=== PATIENT | male | born 2000 | race Caucasian/White ===

== ENCOUNTER 2020-06-13 22:52 | Inpatient (IN) | payer OTHER ==
[~2020-06-13] VITALS: Ht 172.7 cm; Wt 74.2 kg
[2020-06-13] MEDS ORDERED: MULTCAP PO (23:03)
[2020-06-13] MEDS ORDERED: LIDO5DIS41 TD (23:03)
[2020-06-13] MEDS ORDERED: MOBI4TAB PO (23:03)
[2020-06-13] MEDS ORDERED: IBUP1TAB7 PO (23:03)
[2020-06-13 23:28] LABS: HEMATOCRIT 44.8 % (42.0-52.0); HEMOGLOBIN 14.8 g/dl (13.5-17.5); MEAN CORPUSCULAR HEMOGLOBIN 28.6 pg (27.0-33.0); MEAN CORPUSCULAR VOLUME 86.5 fl (80.0-96.0); PLATELET COUNT, AUTOMATED 217 10^3/uL (150-450); RED BLOOD COUNT 5.18 10^6/uL (4.30-6.10); WHITE BLOOD COUNT 9.8 10^3/uL (4.0-10.0)
[2020-06-14 00:12] LABS: ACETAMINOPHEN LEVEL < 2.0 UG/ML (10.0-30.0); ALBUMIN 4.3 GM/DL (3.2-5.2); ALT/SGPT 31 U/L (12-78); BILIRUBIN,DIRECT 0.2 MG/DL (0.0-0.2); BILIRUBIN,TOTAL 0.7 MG/DL (0.2-1.0); BLOOD UREA NITROGEN 18 MG/DL (7-18); CALCIUM LEVEL 8.9 MG/DL (8.5-10.1); CARBON DIOXIDE LEVEL 29 MEQ/L (21-32); CHLORIDE LEVEL 107 MEQ/L (98-107); CREATININE FOR GFR 1.14 MG/DL (0.70-1.30); ETHYL ALCOHOL (ETHANOL) 0.003 % (0.000-0.010); GLOMERULAR FILTRATION RATE > 60.0 (>60); GLUCOSE, FASTING 86 MG/DL (70-100); POTASSIUM SERUM 3.7 MEQ/L (3.5-5.1); SALICYLATE LEVEL < 1.7 MG/DL (5.0-30.0); SODIUM LEVEL 143 MEQ/L (136-145); THYROID STIMULATING HORMONE 0.991 uIU/ML (0.358-3.740)
[2020-06-14] MEDS ORDERED: IBUP1TAB7 PO (00:37)
[2020-06-14] MEDS ORDERED: LIDO1PAD TOP (00:37)
[2020-06-14] MEDS ORDERED: VITMTA PO (00:37)
[2020-06-14 01:51] LABS: AMPHETAMINES LEVEL URINE NEGATIVE (NEGATIVE); BARBITURATES URINE NEGATIVE (NEGATIVE); BENZODIAZEPINES URINE NEGATIVE (NEGATIVE); CANNABINOIDS URINE NEGATIVE (NEGATIVE); COCAINE METABOLITE URINE NEGATIVE (NEGATIVE); METHADONE URINE NEGATIVE (NEGATIVE); OPIATES URINE NEGATIVE (NEGATIVE); PHENCYCLIDINE URINE NEGATIVE (NEGATIVE)
[2020-06-14] MEDS ORDERED: MAALOX 30 ML SUSP *UDC PO PRN (20:00)
[2020-06-14] MEDS ORDERED: OLANZapine ORAL DISINTEGRATING TAB 5MG PO PRN (20:00)
[2020-06-14] MEDS ORDERED: ACETAMINOPHEN TAB 650MG DOSE (2X325MG) PO PRN (20:00)
[2020-06-14] MEDS ORDERED: MOM 30ML SUSPENSION UDC PO PRN (20:00)
--- NOTE | 2020-06-14 20:53 | ECGEPIP ---
[facility] - ED Test Date: 2020-06-14 Pat Name: SULLY ZEE Department: Room: - Gender: Male Open Shank Coverer: jori : 2000 Requested By: Harlan Pardo Order Number: [id number] Reading MD: Sivan Porter Measurements Intervals [place] Rate: 60 P: 20 DC: 150 QRS: 86 QRSD: 83 T: 55 QT: 385 QTc: 387 Interpretive Statements SINUS RHYTHM WITH MARKED SINUS ARRHYTHMIA ST ELEVATION, PROBABLY EARLY REPOLARIZATION Electronically Signed on 06-14-2020 20:52:59 EDT by Sivan Porter
[2020-06-14 23:30] VITALS: BP 133/73
[2020-06-15] MEDS: traZODone 50 MG TAB PO PRN ×2 (01:17→20:47)
[2020-06-15 06:47] VITALS: BP 112/66
[2020-06-15] MEDS ORDERED: INFLUENZA QUADRIVALENT PF VACCINE 0.5ML SYRINGE IM ONE (09:00)
[2020-06-15] MEDS ORDERED: SERTRALINE HCL 50 MG TAB PO SCH (09:00)
--- NOTE | 2020-06-15 10:24 | MHHPEPDOC ---
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 He reports that this is caused him to become more stressed, anxious and have diffi culty sleeping. He reported that he had a difficult time with his chain of command and that he began to think about suicide, but he reports that he has no plan. He denies any history of mental health problems in the past and screens negative for psychotic, bipolar and other conditions. He reports primary stress related problems. MEDICAL/PSYCHIATRIC HISTORY: Denies any previous interactions with psychiatry on no current medications appears to have been started on sertraline by the on-call provider and admission is a history of suicide attempts FAMILY HISTORY: Reviewed from PSA. noncontributory SOCIAL HISTORY - OCCUPATION: Currently employed as a soldier, in a [employer] SOCIAL HISTORY - LIVING SITUATION: lives in the [facility], but reports that he from his platoon SOCIAL HISTORY- ADDICTION: Denies any excessive substance use or illicit drug use. Objective General: Well dressed with good hygiene Speech: Spontaneous and fluid Thought processes: Linear and logical Thought content: Future orientated Abstract reasoning, and computation: Intact Description of associations: Intact Description of abnormal or psychotic thoughts:Denies any suicidal or homicidal ideation. Denies any auditory or visual hallucinations. Does not appear to be responding to internal stimuli. Does not appear to be endorsing any bizarre or paranoid ideation. Judgment: fair Insight: fair Orientation: Alert and orientated 3 Recent and remote memory: Intact Attention span and concentration: Intact Fund of knowledge: Adequate Mood: "okay" Affect: mildly anxious Assessment Adjustment disorder disruption of mood conduct Plan Will discontinue sertraline, would be best to try supportive treatment such as trazodone for sleep and observation, if improved spontaneously this would suggest an adjustment disorder or even a adjustment reaction being the provoking cause, will likely triage for discharge on Thursday if he does well, conversion to voluntary to be undertaken, if patient does this in bad curtis and would recommend on-call to extend so he can be observed over the weekend, but unlikely to retain after several days Treatment priorities are 1. Risk for suicide 2.. Ineffective coping Stay for 1-3 days. Vital Signs Vital Signs Date Time Temp Pulse Resp B/P (MAP) Pulse Ox O2 Delivery O2 Flow Rate FiO2 06/15/20 06:47 97.4 69 12 112/66 (81) Room Air 06/14/20 23:30 99 Medications Scheduled Multivitamins (Thera M Plus Tablet) 1 Each Tablet, 1 TAB PO DAILY, (Reported) Scheduled PRN Ibuprofen (Ibuprofen) 800 Mg Tablet, 800 MG PO TID PRN for PAIN, (Reported) Lidocaine (Lidocaine) 5% Adh..patch, 1 PATCH TOP DAILY PRN for PAIN, (Reported) Allergies Coded Allergies: Penicillins (Verified Allergy, Intermediate, unknown, has never had the med. Mother is allergic, 06/13/20) LIDIA HOPKINS DO Jun 15, 2020 10:24
--- NOTE | 2020-06-15 15:29 | HPEPDOC ---
[facility] Medical History & Physical Date of Admission Jun 14, 2020 Date of Service: Jun 15, 2020 Attending Physician: Caitie Patterson MD History and Physical HISTORY OF PRESENT ILLNESS: Patient is a 20-year-old male with medical history of chronic back pain 2/2 to bulging disks who presented to [facility] after having thoughts of suicidal ideations. According to the patient he has been under many work stressors and feeling increasingly depressed over the past several months. He also says a good friend of his committed suicide 1 year ago and he has not been able to get over this. He says that his job is "menial", that he hates his job. He also states that he has not been able to get home to see his family which he normally does every 6 months. He reported to a superior earlier in the day that he had been experiencing thoughts of hurting himself. He has not been following with outpatient behavior health specialist and he has no prior diagnosis of depression. He denies homicidal ideation, visual hallucinations, auditory hallucinations, substance abuse history, alcohol abuse, plans for suicide, hopelessness, tearfulness, weight loss, loss of appetite. He admits to feeling angry at times due to his frustrations with his current occupation, poor sleep, lethargic, difficulty functioning during the day at times. Patient was admitted to [facility] for unspecified depressive disorder. REVIEW OF SYSTEMS: Neg except for what is mentioned above PAST MEDICAL HISTORY: 1. Chronic back pain 2/2 to bulging disc PAST SURGICAL HISTORY: None FAMILY HISTORY: Father: Bipolar disorder, depression. Alive Mother: Healthy. Alive Maternal grandmother: HTN, DM. Alive. SOCIAL HISTORY: Vapes 3 hrs /day and up to 7 hrs/day on the weekends. Social alcohol use 3x/mo. Denies illicit drug use currently or history of. Resides in [facility] on . [facility], [facility]. ALLERGIES: Please see below. HOME MEDICATIONS: Please see below. PHYSICAL EXAMINATION: VS: Please see below CONSTITUTIONAL: No acute distress, resting comfortably, AAO x 3 EYES: PERRLA, EOM intact HENT, MOUTH: Normocephalic, atraumatic, moist mucous membranes, NECK: SUPPLE, no JVD, no lymphadenopathy, no carotid bruit CV: Regular rate and rhythm, S1S2 normal, no murmurs/rubs/gallops RESPIRATORY: Clear to auscultation bilaterally, no rales/rhonchi/wheezes GI: BS positive in 4 quadrants, soft, nontender, nondistended, no rebound or guarding, no organomegaly : Deferred MUSCULOSKELETAL: Normal ROM. No cyanosis, clubbing, swelling, joint deformity, extremity edema INTEGUMENTARY: Intact, no rashes, no lesions, no erythema NEUROLOGIC: Cranial Nerves II-XII are intact, no focal deficits PSYCHIATRIC: Mood and affect are normal LABORATORY DATA: Please see below IMAGING: None ASSESSMENT: 20-year-old male with medical history of chronic back pain admitted for unspecified depressive disorder. PLAN: 1. Unspecified depressive disorder. Plan per psychiatry team. 2. Chronic back pain. Stable. F/u with PCP. Can add Tylenol PRN. DISPOSITION: Due to patient's medical status stable aside from mental health aspect, will sign off from case. If we are needed to reevaluate at any time, please do not hesitate to call. Thank you. Vital Signs Vital Signs Date Time Temp Pulse Resp B/P (MAP) Pulse Ox O2 Delivery O2 Flow Rate FiO2 06/15/20 06:47 97.4 69 12 112/66 (81) Room Air 06/14/20 23:30 99 Home Medications Scheduled Multivitamins (Thera M Plus Tablet) 1 Each Tablet, 1 TAB PO DAILY Scheduled PRN Ibuprofen (Ibuprofen) 800 Mg Tablet, 800 MG PO TID PRN for PAIN Lidocaine (Lidocaine) 5% Adh..patch, 1 PATCH TOP DAILY PRN for PAIN Allergies Coded Allergies: Penicillins (Verified Allergy, Intermediate, unknown, has never had the med. Mother is allergic, 06/13/20) A-FIB/CHADSVASC A-FIB History Current/History of A-Fib/PAF?: No Current PO Anticoag Therapy: No Age/Risk Factor Scoring CHADSVASC: CHADSVASC Response (Comments) Value Age Risk Factor Age < 65 years old 0 Gender Risk Factor Male 0 Hx of CHF No 0 Hx of HTN No 0 Hx of Stroke/TIA/or VTE No 0 Hx of Diabetes No 0 Hx of Vascular Disease No 0 Total 0 Treatment Treatment ordered: NONE Other anticoagulant ordered: early ambulation Caitie Patterson MD Jun 15, 2020 15:29
[2020-06-15 18:44] VITALS: BP 122/70
[2020-06-16 06:31] VITALS: BP 119/74
[2020-06-16] MEDS ORDERED: LIDOCAINE 5% (LIDODERM) PATCH TOP PRN (09:00)
[2020-06-16] MEDS ORDERED: IBUPROFEN 800 MG TAB PO PRN (09:00)
[2020-06-16 18:00] VITALS: BP 119/70
[2020-06-16] MEDS: **NOTE PATIENT COMMENT** MISC XX SCH (20:36)
[2020-06-17 06:29] VITALS: BP 119/63
[2020-06-17] MEDS: MULTIVITAMINS/MINERALS THERAP 1 TAB PO SCH (09:44)
[2020-06-17 17:52] VITALS: BP 126/65
[2020-06-17] MEDS: **NOTE PATIENT COMMENT** MISC XX SCH (21:00)
[2020-06-18 06:47] VITALS: BP 129/68
[2020-06-18] MEDS: MULTIVITAMINS/MINERALS THERAP 1 TAB PO SCH (09:01)
--- NOTE | 2020-06-18 09:59 | MHDSPDOC ---
[facility] Discharge Summary Discharge Summary DATE OF ADMISSION: Jun 14, 2020 at 19:59 DATE OF DISCHARGE: Jun 18, 2020 at 12:45 DISCHARGE DIAGNOSES: F43.25 Adjustment disorder with mixed disturbance of emotions and conduct CONSULTANTS INVOLVED:[ None (basic hospitalist screening)] REASON FOR ADMISSION & TREATMENT AND PROGRESS ON THE UNIT : The patient was admitted to the inpatient mental health unit after reported suicidal ideation in the setting of a conflict with his chain of command. He reported that he felt dismissed and generally not engaged by his chain of and that this made him have difficulty sleeping with anxiety and then passive ideation suicide of which he had presented himself. He was brought in and ob served. Initially, there had been an attempt to start him on Zoloft empirically by the on-call, however this was discontinued after discussion with the patient. He was admitted to the inpatient unit observed. He generally did well, was social and engaged, gregarious and talkative without any signs of major depression and appeared to be more state of adjustment. He primarily appeared fixated on the invalidating nature of his chain of command and the difficulties related theyre in. He did well without any major behavioral problems, engaged, went to groups, and generally did everything that could be expected. He left after requesting to go having no signs of suicidal or homicidal ideations and presenting on his admission. DISCHARGE ASSESSMENT[improved] Legal status considerations: The patient at the time of discharge did not meet criteria for involuntary admission/extension due to having a [normal] mental status exam, [fair] insight into the situation, They are engaged in the discharge process, as well as being friendly and amenable in behavioral control and havent been engaging in any observed concerning behavior or ideation recently. They decline voluntary extension/admission at this time and must be discharged in good curtis, as Im unable to make a case for holding the patient against their will. They may have historical risk factors of admissions and other interactions with psychiatry however, those are not modifiable from a clinical perspective. The patient will need to be discharged in good curtis. MENTAL STATUS EXAMINATION ON DISCHARGE: [General: Well dressed with good hygiene Speech: Spontaneous and fluid Thought processes: Linear and logical Thought content: Future orientated Abstract reasoning, and computation: Intact Description of associations: Intact Description of abnormal or psychotic thoughts:Denies any suicidal or homicidal ideation. Denies any auditory or visual hallucinations. Does not appear to be responding to internal stimuli. Does not appear to be endorsing any bizarre or paranoid ideation. Judgment: fair Insight: fair Orientation: Alert and orientated 3 Recent and remote memory: Intact Attention span and concentration: Intact Fund of knowledge: Adequate Mood: "okay" Affect: Euthymic with a full range] PLAN/FOLLOWUP ARRANGEMENTS: Follow up appointments made (PCP and MH in 5 days of D/C date) and safety plan completed. Safety Planning aspects completed prior to discharge [DOD: Weapons Profile 30 days] [RN reviewed crisis hotline information and other aspects to empower patient to access care in interim before next appointment.] The amount of time spent in the coordination of care for this patient was shona roximately 30 minutes. Vital Signs/I&Os Vital Signs Date Time Temp Pulse Resp B/P (MAP) Pulse Ox O2 Delivery O2 Flow Rate FiO2 06/18/20 06:47 98.0 69 15 129/68 (88) 98 Room Air Medications Scheduled Multivitamins (Thera M Plus Tablet) 1 Each Tablet, 1 TAB PO DAILY for health for 30 Days, #30 Scheduled PRN Ibuprofen (Ibuprofen) 800 Mg Tablet, 800 MG PO TID PRN for PAIN for 7 Days, #7 Lidocaine (Lidocaine) 5% Adh..patch, 1 PATCH TOP DAILY PRN for PAIN for 30 Days, #30 Allergies Coded Allergies: Penicillins (Verified Allergy, Intermediate, unknown, has never had the med. Mother is allergic, 06/13/20) LIDIA HOPKINS DO Jun 18, 2020 09:59
[2020-06-18] MEDS ORDERED: VITMTA PO (11:32)
[2020-06-18] MEDS ORDERED: IBUP1TAB7 PO (11:32)
[2020-06-18] MEDS ORDERED: LIDO1PAD TOP (11:32)
[2020-06-18] MEDS ORDERED: INFLUENZA QUADRIVALENT PF VACCINE 0.5ML SYRINGE IM ONE (12:00)
--- NOTE | 2020-06-21 10:26 | MHIPN ---
DATE: 06/16/2020 The patient today reports that he is feeling "better," but he feels that this is just because he is away from all of his stressors. He is denying suicidal ideations. MENTAL STATUS EXAMINATION: This patient is alert and oriented times three. Eye contact fair. Psychomotor activity s decreased. There is no formal thought disorder noted. He says mood is "better." Affect is constricted but appropriate to mood. He is not psychotic. He is denying suicidal or homicidal ideations. Concentration is fair. Memory intact. Insight and judgment are fair. DIAGNOSES: 1. Unspecified depressive disorder. 2. Adjustment disorder with depressed mood, rule out other specified depressive disorder. TREATMENT PLAN: At this point, the patient is stating that he is feeling better, and he is not suicidal. We will continue to evaluate him for further stabilization of his mood and continued resolution of his suicidal ideations. 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 We will continue to evaluate him as he might benefit from treatment with an antidepressant. TAZ
== END 2020-06-18 12:45 | disposition home or self-care (01) | DRG 882 ==
LOC: M ED 22:52 → M ED INP 06-14 19:59 → M PSY 06-14 23:46
PROVIDERS: ADMIT Psychiatry & Neurology Psychiatry; ATTEND Psychiatry & Neurology Addiction Medicine
DX: F43.25 Adjustment disorder with mixed disturbance of emotions and conduct (principal); Z88.0 Allergy status to penicillin; M54.9 Dorsalgia, unspecified; Z56.4 Discord with boss and workmates